=== PATIENT | female | born 1955 | race Caucasian/White ===

== ENCOUNTER → 2017-02-25 | Outpatient (CLI) | payer OTHER ==
[~2017-02-25] MED LIST: BENTYL 20 MG TA20 M1 PO; CELEBREX 200 M200 M1 PO; CIPRO500 MG PO; COMBIVENT INH; DUONEB 2.5-0.5 M3 ML INH; ESTRACE2 MG PO; FLAGYL500 M1 PO; FLAGYL500 MG PO; IRON325 M1 PO; KLONOPIN1 MG PO; NICOTINE TRANSD21 M1 TRANSDERM; PROTONIX40 M1 PO; SYNTHROID112 MCG PO; THEOPHYLLINE E100 MG PO; [UNRECOGNIZED DRUG - REMARK]
== END ==
LOC: M.RAD 14:02
DX: J84.10 Pulmonary fibrosis, unspecified (principal); J98.11 Atelectasis